=== PATIENT | female | born 1970 ===

== ENCOUNTER 2016-11-22 01:58 | Emergency (ER) | payer SELFPAY ==
[2016-11-22 01:58] VITALS: BMI 26.6
[2016-11-22 02:18] VITALS: BP 126/72; PULSE 76; RESP 17; TEMP 98.5; O2SAT 98
[2016-11-22] MEDS ORDERED: Sodium Chloride 0.9% 1,000 ML IV STA (02:57)
--- NOTE | 2016-11-22 03:01 | ED PDOC ---
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 Patient states she has history of headaches, but that this one is different. Patient states headaches will improve with excedrin, motrin, or tylenol, but that they will soon return. Denies fever, vision changes, neck pain, nausea/vomiting, extremity numbness/weakness, chest pain, shortness of breath, palpitations. Patient states headache started after having IUD placed. Past Medical History Reviewed: Historical Data, Nursing Documentation, Vital Signs Vital Signs: Last Vital Signs Temp 98.5 F 11/22/16 02:09 Pulse 76 11/22/16 02:09 Resp 17 11/22/16 02:09 BP 126/72 11/22/16 02:09 Pulse Ox 98 11/22/16 02:09 - Medical History PMH: Kidney Stones - Surgical History Surgical History: - Family History Family History: States: Unknown Family Hx - Living Arrangements Living Arrangements: With Family - Immunization History Hx Tetanus Toxoid Vaccination: Yes Hx Influenza Vaccination: No Hx Pneumococcal Vaccination: No - Home Medications Home Medications: Ambulatory Orders Medication Instructions Recorded Aspirin/Acetaminophen/Caffeine 1 each PO PRN PRN 10/01/16 [Excedrin Extra Strength Caplet] Naproxen [Naprosyn] 500 mg PO Q12 PRN #20 tablet 11/22/16 - Allergies Allergies/Adverse Reactions: Allergies Allergy/AdvReac Type Severity Reaction Status Date / Time No Known Allergies Allergy Verified 10/01/16 14:18 Review of Systems ROS Statement: Except As Marked, All Systems Reviewed And Found Negative Neurological: Positive for: Headache Physical Exam - Reviewed Nursing Documentation Reviewed: Yes Vital Signs Reviewed: Yes - Physical Exam Appears: Positive for: Well, Non-toxic, No Acute Distress Head Exam: Positive for: ATRAUMATIC, NORMAL INSPECTION, NORMOCEPHALIC Skin: Positive for: Normal Color Eye Exam: Positive for: Normal appearance, EOMI, PERRL ENT: Positive for: Normal ENT Inspection Cardiovascular/Chest: Positive for: Regular Rate, Rhythm Respiratory: Positive for: Normal Breath Sounds Gastrointestinal/Abdominal: Positive for: Normal Exam Back: Positive for: Normal Inspection Extremity: Positive for: Normal ROM Neurologic/Psych: Positive for: Alert, Oriented - Laboratory Results Result Diagrams: 11/22/16 02:59 11/22/16 02:59 - ECG O2 Sat by Pulse Oximetry: 98 - Progress ED Course And Treament: labs, CT head, IV fluids, IV reglan, PO tylenol EXAM: CT Head Without Intravenous Contrast CLINICAL HISTORY: 46 years old, female; Pain; Headache TECHNIQUE: Axial computed tomography images of the head/brain without intravenous contrast. All CT scans at this facility use one or more dose reduction techniques, viz.: automated exposure control; ma/kV adjustment per patient size (including targeted exams where dose is matched to indication; i.e. head); or iterative reconstruction technique. Coronal and sagittal reformatted images were created and reviewed. COMPARISON: No relevant prior studies available. FINDINGS: Brain: No intracranial hemorrhage. No mass. No definite edema. Ventricles: No hydrocephalus. Bones/joints: No acute fracture. Soft tissues: Unremarkable. Sinuses: No acute sinusitis. Mastoid air cells: No mastoid effusion. Orbits: Unremarkable as visualized. IMPRESSION: 1. No acute intracranial abnormality. On re-eval, patient sleeping; upon awakening states headache improved, now 3/10. Patient educated on findings, discharged with rx Naproxen. Advised follow up PMD 2-3 days. Return to ED for worsening/concerning symptoms. Disposition - Clinical Impression Clinical Impression: Headache - Patient ED Disposition Is Patient to be Admitted: No Counseled Patient/Family Regarding: Studies Performed, Diagnosis, Need For Followup, Rx Given - Disposition Disposition: Routine/Home Disposition Time: 05:28 Condition: IMPROVED Prescriptions: Naproxen [Naprosyn] 500 mg PO Q12 PRN #20 tablet PRN Reason: Pain, Moderate (4-7) Instructions: Acute Headache (ED) Print Language: SLOVENIAN
[2016-11-22 03:06] LABS: BASO # 0.1 K/uL (0.0-0.2); BASO % 0.7 % (0.0-2.0); EOS # 0.1 K/uL (0.0-0.7); EOS % 0.9 % (0.0-4.0); LYMPH # 3.9 K/uL (1.0-4.3); LYMPH % 33.4 % (20.0-40.0); MEAN CELL VOLUME 93.1 fl (81.0-99.0); MEAN CORPUSCULAR HEMOGLOBIN 31.2 pg (27.0-31.0); MEAN CORPUSCULAR HGB CONC 33.5 g/dL (33.0-37.0); MEAN PLATELET VOLUME 9.4 fl (7.2-11.7); MONO # 0.8 K/uL (0.0-0.8); MONO % 7.1 % (0.0-10.0); NEUT # 6.8 K/uL (1.8-7.0); NEUT % 57.9 % (50.0-75.0); RBC 4.48 Mil/uL (3.80-5.20); WHITE BLOOD COUNT 11.8 K/uL (4.8-10.8)
[2016-11-22 03:20] LABS: ALB/GLOB RATIO 1.3 (1.0-2.1); ALBUMIN 4.3 g/dL (3.5-5.0); AST/SGOT 24 U/L (14-36); BLOOD UREA NITROGEN 17 mg/dl (7-17); CALCIUM 9.4 mg/dL (8.4-10.2); GFR AFRICAN-AMERICAN > 60; GFR NON-AFRICAN AMERICAN > 60
[2016-11-22 03:21] LABS: ALT/SGPT 21 U/L (9-52)
[2016-11-22 03:28] LABS: SQUAMOUS EPITHIAL 14 /hpf (0-5); URINE BACTERIA RARE (<OCC); URINE BILIRUBIN NEGATIVE (NEGATIVE); URINE BLOOD LARGE (NEGATIVE); URINE CLARITY CLOUDY (Clear); URINE COLOR YELLOW (YELLOW); URINE GLUCOSE (UA) NEG (Normal); URINE LEUKOCYTE ESTERASE TRACE Leu/uL (Negative); URINE NITRATE NEGATIVE (NEGATIVE); URINE PROTEIN 30 mg/dL (NEGATIVE); URINE UROBILINOGEN 0.2-1.0 mg/dL (0.2-1.0)
--- NOTE | 2016-11-22 04:12 | CT ---
EXAM: CT Head Without Intravenous Contrast CLINICAL HISTORY: 46 years old, female; Pain; Headache TECHNIQUE: Axial computed tomography images of the head/brain without intravenous contrast. All CT scans at this facility use one or more dose reduction techniques, viz.: automated exposure control; ma/kV adjustment per patient size (including targeted exams where dose is matched to indication; i.e. head); or iterative reconstruction technique. Coronal and sagittal reformatted images were created and reviewed. COMPARISON: No relevant prior studies available. FINDINGS: Brain: No intracranial hemorrhage. No mass. No definite edema. Ventricles: No hydrocephalus. Bones/joints: No acute fracture. Soft tissues: Unremarkable. Sinuses: No acute sinusitis. Mastoid air cells: No mastoid effusion. Orbits: Unremarkable as visualized. IMPRESSION: 1. No acute intracranial abnormality.
== END 2016-11-22 06:02 | disposition home or self-care (01) ==
LOC: H.ER 01:58
DX: R51 Headache (principal); Z79.82 Long term (current) use of aspirin
CPT/HCPCS: 70450; 80053; 81003; 81025; 85025; 87086; 96360; 99283; J2765; J7040

== ENCOUNTER 2018-02-08 09:37 | Emergency (ER) | payer SELFPAY ==
[2018-02-08 09:44] VITALS: BMI 24.7
[2018-02-08] MEDS ORDERED: Sodium Chloride 0.9% 1,000 ML IV STA (10:50)
--- NOTE | 2018-02-08 10:56 | ED PDOC ---
HPI: Headache Time Seen by Provider: 02/08/18 10:17 Chief Complaint (Nursing): Headache History Per: Patient (states she has had onset of headache yesterday night. Patient's child is admitted in peds and she was will him overnight) History/Exam Limitations: no limitations Past Medical History Reviewed: Historical Data, Nursing Documentation, Vital Signs Vital Signs: Last Vital Signs Temp 98.5 F 02/08/18 09:43 Pulse 72 02/08/18 09:43 Resp 20 02/08/18 09:43 BP 124/79 02/08/18 09:43 Pulse Ox 97 02/08/18 09:43 - Medical History PMH: Kidney Stones, Migraine, Chronic Kidney Disease - Surgical History Surgical History: Appendectomy (laparoscopic), - Family History Family History: States: Unknown Family Hx - Living Arrangements Living Arrangements: With Family - Immunization History Hx Tetanus Toxoid Vaccination: Yes Hx Influenza Vaccination: No Hx Pneumococcal Vaccination: No - Home Medications Home Medications: Ambulatory Orders Medication Instructions Recorded Acetaminophen/Butalbital/Caf 1 tab PO TID PRN #20 tab 12/13/17 [Fioricet] Diclofenac Potassium [Cambia] 50 mg PO DAILY PRN 12/13/17 - Allergies Allergies/Adverse Reactions: Allergies Allergy/AdvReac Type Severity Reaction Status Date / Time No Known Allergies Allergy Verified 10/26/17 09:23 Review of Systems ROS Statement: Except As Marked, All Systems Reviewed And Found Negative Constitutional: Negative for: Fever, Chills Eyes: Negative for: Vision Change Cardiovascular: Negative for: Palpitations Gastrointestinal: Negative for: Nausea, Vomiting Genitourinary Female: Negative for: Dysuria Musculoskeletal: Negative for: Shoulder Pain Physical Exam - Reviewed Nursing Documentation Reviewed: Yes Vital Signs Reviewed: Yes - Physical Exam Appears: Positive for: Well, Non-toxic, No Acute Distress Head Exam: Positive for: ATRAUMATIC, NORMAL INSPECTION, NORMOCEPHALIC Skin: Positive for: Normal Color Eye Exam: Positive for: Normal appearance, EOMI, PERRL ENT: Positive for: Normal ENT Inspection Neck: Positive for: Painless ROM, Supple Gastrointestinal/Abdominal: Positive for: Soft. 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 Negative for: Tran r/Sensory Deficits, Aphasia, Facial Droop - ECG O2 Sat by Pulse Oximetry: 97 - Progress Re-evaluation Time: 12:06 Condition: Improving,but remains with symptoms Disposition - Clinical Impression Clinical Impression: Headache - Patient ED Disposition Is Patient to be Admitted: No Doctor Will See Patient In The: Office Counseled Patient/Family Regarding: Diagnosis, Need For Followup - Disposition Disposition: Routine/Home Disposition Time: 11:45 Condition: IMPROVED Instructions: Tension Headache Forms: [facility] (Albanian) - POA Present On Arrival: None
[2018-02-08 13:08] VITALS: BP 125/79; PULSE 67; RESP 18; TEMP 98; O2SAT 100
== END 2018-02-08 13:09 | disposition home or self-care (01) ==
LOC: H.ER 09:37
DX: R51 Headache (principal)
CPT/HCPCS: 81025; 96361; 96374; 99283; J1885; J7030

== ENCOUNTER 2018-03-04 23:03 | Emergency (ER) | payer SELFPAY ==
[2018-03-04 23:03] VITALS: BMI 24.7
[2018-03-04 23:18] VITALS: TEMP 98.6
[2018-03-05] MEDS ORDERED: Sodium Chloride 0.9% 1,000 ML IV STA
--- NOTE | 2018-03-05 00:36 | ED PDOC ---
HPI: Headache Time Seen by Provider: 03/04/18 23:51 Chief Complaint (Nursing): Headache Chief Complaint (Provider): Headache History Per: Patient History/Exam Limitations: no limitations Onset/Duration Of Symptoms: Hrs (x4) Current Symptoms Are (Timing): Still Present Associated Symptoms: Photophobia Additional Complaint(s): 47 year old female, with a past medical history of hypertension and migraines, presents to the ED with 4 hour onset of left sided headache. Patient states it was a gradual onset and is now associated with photophobia. Denies nausea, vomiting, or dizziness. She states symptoms are not any better than previous headache. Denies recent trauma or neurological, motor, or sensory deficits. According to the , patient has been emotional as her son last week. She has been crying frequently and both patient and believe stress may have triggered the headache. Patient denies missing any medications. She states she does not remember her high blood pressure medication but knows she takes indomethacin for headaches. PMD: Dr. Castle Past Medical History Reviewed: Historical Data, Nursing Documentation, Vital Signs Vital Signs: Last Vital Signs Temp 98.6 F 03/04/18 23:17 Pulse 94 H 03/04/18 23:17 Resp 16 03/04/18 23:17 BP 130/81 03/04/18 23:17 Pulse Ox 97 03/04/18 23:17 - Medical History PMH: Kidney Stones, Migraine, Chronic Kidney Disease - Surgical History Surgical History: Appendectomy (laparoscopic), - Family History Family History: States: Unknown Family Hx - Immunization History Hx Tetanus Toxoid Vaccination: Yes Hx Influenza Vaccination: No Hx Pneumococcal Vaccination: No - Home Medications Home Medications: Ambulatory Orders Medication Instructions Recorded Acetaminophen/Butalbital/Caf 1 tab PO TID PRN #20 tab 12/13/17 [Fioricet] Diclofenac Potassium [Cambia] 50 mg PO DAILY PRN 12/13/17 - Allergies Allergies/Adverse Reactions: Allergies Allergy/AdvReac Type Severity Reaction Status Date / Time No Known Allergies Allergy Verified 10/26/17 09:23 Review of Systems ROS Statement: Except As Marked, All Systems Reviewed And Found Negative Eyes: Positive for: Other (Photophobia) Gastrointestinal: Negative for: Nausea, Vomiting Neurological: Positive for: Headache. Negative for: Dizziness, Other (neurological, motor, or sensory deficits) Physical Exam - Reviewed Nursing Documentation Reviewed: Yes Vital Signs Reviewed: Yes - Physical Exam Appears: Positive for: Non-toxic, No Acute Distress Head Exam: Positive for: ATRAUMATIC, NORMOCEPHALIC Skin: Positive for: Normal Color, Warm, Dry Eye Exam: Positive for: EOMI, PERRL, Other (Both eyes blood shot; surrounding eyes are puffy with crying appearance; no drainage) ENT: Negative for: Other (sinus tenderness on palpation) Neck: Positive for: Normal (with no tenderness to palpation of cervical spine), Painless ROM Cardiovascular/Chest: Positive for: Regular Rate, Rhythm Respiratory: Positive for: Normal Breath Sounds. Negative for: Wheezing, Respiratory Distress Extremity: Positive for: Normal ROM (full ROM of all extremities; 5/5 strength of all extremities) Neurologic/Psych: Positive for: Alert, Oriented, Other (symmetric sensation of face). Negative for: Motor/Sensory Deficits - ECG O2 Sat by Pulse Oximetry: 97 (RA) Pulse Ox Interpretation: Normal Medical Decision Making Medical Decision Making: Initial Impression: workup for left sided headache brought on by stress Initial Plan: --Will attempt conservative treatment of headache including anxiety medication. --IV fluids --Toradol 30mg IV --Reglan 10mg IV --Ativan 0.5mg IV --Reassess patient If headache not improved, will consider CT brain. 02:06 Patient with improved pain. Will continue with IV fluids. Patient most likely to be discharged home. Scribe Attestation: Documented by Devonte Walsh acting as a scribe for Chelsey Wheatley MD. Provider Scribe Attestation: All medical record entries made by the Scribe were at my direction and personally dictated by me. I have reviewed the chart and agree that the record accurately reflects my personal performance of the history, physical exam, medical decision making, and the department course for this patient. I have also personally directed, reviewed, and agree with the discharge instructions and disposition. 246am Pt with completely resolved headache. Pt to follow up with PMD. Incouraged to increase water intake and to seek outpatient therapy due to stress and anxiety related to her son's . Return parameters discussed. Disposition - Clinical Impression Clinical Impression: Acute headache - Disposition Disposition: Routine/Home Disposition Time: 02:49 Condition: IMPROVED Additional Instructions: Follow up with primary medical doctor regarding headaches and depression. Return to the emergency department if symptoms worsen or if new symptoms develop. Instructions: Acute Headache (ED) Forms: [facility] (Latvian), [facility] (Croatian) Print Language: BENINESE
[2018-03-05 02:35] VITALS: BP 114/55; PULSE 76; RESP 18
[2018-03-05 02:49] VITALS: O2SAT 97
== END 2018-03-05 03:07 | disposition home or self-care (01) ==
LOC: H.ER 23:03
DX: R51 Headache (principal); F41.9 Anxiety disorder, unspecified; N18.9 Chronic kidney disease, unspecified; Z87.442 Personal history of urinary calculi; I10 Essential (primary) hypertension
CPT/HCPCS: 96361; 96374; 96375; 99285; J1885; J2060; J2765; J7030